=== PATIENT | female | born 1980 | race Hispanic/Latino ===

== ENCOUNTER 2017-08-16 09:31 | Outpatient (CLI) | payer MEDICARE ==
--- NOTE | 2017-08-16 11:26 | XRay Report ---
LEFT HUMERUS, 2 VIEWS History: Pain in left arm. Findings: The comminuted left humeral shaft fracture has been internally fixated with intramedullary josh and screws and is unchanged in position and alignment since the operative films dated 06/22/17. Mild calcified callus is identified at the fracture site but fracture lines remain evident. No evidence for new fracture or bony destruction. Articulation at the shoulder and elbow appear anatomic. The soft tissues are unremarkable. Impression: Internally fixated left humeral fracture with signs of healing as described above. No new acute process is appreciated.
== END 2017-08-16 09:32 | disposition home or self-care (01) ==
LOC: XRAY 09:31
PROVIDERS: ATTEND Orthopaedic Surgery
DX: M79.602 Pain in left arm (principal); S42.352D Displaced comminuted fracture of shaft of humerus, left arm, subsequent encounter for fracture with routine healing; X58.XXXD Exposure to other specified factors, subsequent encounter